=== PATIENT | female | born 1945 | race Caucasian/White ===

== ENCOUNTER → 2016-04-19 | Day surgery (SDC) | payer OTHER, MEDICARE ==
[~2016-04-19] VITALS: Ht 154.9 cm; Wt 90.7 kg
[~2016-04-19] MED LIST: ALLOPURINOL100 M1 PO; ALLOPURINOL100 MG PO; AMBIEN 10MG10 MG PO; ASPIR 8181 MG PO; BENICAR20 MG PO; BENICAR40 M1 PO; CLOPIDOGREL75 M1 PO; COLCHICINE0.6 MG PO; COREG 3.125M3.125 MG PO; COREG CR10 MG PO; COREG3.125 MG PO; CYANOCOBAL1000 MCG/1 IM; DULOXETINE HYDR60 MG PO; HEPARIN 2525000 UNI1 IV; LEXAPRO10 M1 PO; NAC600 MG PO; PRAVACHOL20 M2 PO; TOPAMAX 100MG100 MG PO; TOPAMAX50 M1 PO; WELCHOL 625 MG625 MG PO; ZETIA10 M1 PO; ZETIA10 MG PO
--- NOTE | 2016-04-19 18:08 | Operative Report ---
Operative/Inv Procedure Report Surgery Date: 04/19/16 Name of Procedure: Open mesh repair of incarcerated incisional ventral hernia Pre-Operative Diagnosis: Same Post-Operative Diagnosis: Same Estimated Blood Loss: scant Surgeon/Yard Jacker: ARLETTE ESCOBEDO,VICKIE SOFIA Anesthesia: general endotracheal tube Operative/Procedure Note Note: Patient was placed on the OR table in the supine position. After successful induction of general anesthesia, another timeout was done, antibiotics given, the abdomen was clipped prepped and draped in the usual sterile fashion. An incision was planned overlying the hernia, to excise the existing scar there, this spot was infiltrated with local anesthetic and then an elongated elliptical incision was made with a 15 blade. This was deepened with cautery and the herniated fat and overlying sac is some small but mostly large bowel were dissected circumferentially off the fascia, defining the true edges of the defect, which was about 6 cm diameter, but it could be brought together in the midline with not too much tension. We then inserted the Ventralex coated 6.5 centimeter mesh underneath the defect using the tails to center it and then closed the defect with multiple 2-0 Maxon and also Prolene sutures, incorporating the mesh with the fascial closure. The subcutaneous space from the herniated sac was large so we decided to leave a drain in it but we isolated this space from the hernia repair by imbricating some remnants of sac and scar over the suture line with 3-0 Vicryl suture. Then the subcutaneous layer and King's fascia were reapproximated to cover. The incision was irrigated and then the skin was reapproximated with garrison, followed by an island dressing and a separate gauze for the drain exit site which was secured to the skin with remnant of the 2-0 Prolene. EBL minimal lap and sponge counts correct wound expectancy clean IV fluids crystalloid complications none patient tolerated the procedure well was awakened extubated returned to the recovery room in satisfactory condition.
== END ==
LOC: STS 04:00
DX: K43.0 Incisional hernia with obstruction, without gangrene (principal); I25.10 Atherosclerotic heart disease of native coronary artery without angina pectoris; I10 Essential (primary) hypertension; E78.5 Hyperlipidemia, unspecified; K86.9 Disease of pancreas, unspecified
CPT/HCPCS: J0131; J2250

== ENCOUNTER 2016-10-25 08:14 | Emergency (ER) | payer OTHER, MEDICARE ==
[~2016-10-25] VITALS: Ht 152.4 cm; Wt 90.7 kg
[~2016-10-25 08:14] MED LIST changes: -AMBIEN 10MG10 MG PO; +AMBIEN10 M1 PO; -ASPIR 8181 MG PO; +ASPIRIN EC81 M1 PO; +TOPAMAX25 M3 PO; -TOPAMAX50 M1 PO
--- NOTE | 2016-10-25 08:42 | ED GENERAL ADULT ---
History of Present Illness General Chief Complaint: General Adult Stated Complaint: BIBA, LEFT UPPER AND LOWER EXTREMITY PAIN, NKI Source: patient, old records Exam Limitations: no limitations Vital Signs & Intake/Output Vital Signs & Intake/Output Vital Signs Date Time Temp Pulse Resp B/P B/P Pulse O2 O2 Flow FiO2 Mean Ox Delivery Rate 10/25 1058 98.6 87 21 148/62 96 Room Air 10/25 0815 98.2 93 20 151/65 97 Room Air Allergies Coded Allergies: Penicillins (THROAT CLOSES 04/16/16) azithromycin (THROAT CLOSES, LARYNGEAL EDEMA 04/16/16) cephalexin (From KEFLEX) (HIVES 04/16/16) levofloxacin (LARYNGEAL EDEMA, THROAT CLOSES 04/16/16) moxifloxacin (LARYNGEAL EDEMA 04/16/16) naproxen (THROAT CLOSES 04/16/16) Reconcile Medications Allopurinol 100 MG TABLET 1 TAB PO DAILY GOUT (Reported) Aspirin (Ecotrin*) 81 MG TABLET.DR 1 TAB PO DAILY HEART HEALTH (Reported) Carvedilol (Coreg) 3.125 MG TABLET 1 TAB PO BID BP (Reported) Clopidogrel Bisulfate (Clopidogrel) 75 MG TABLET 1 TAB PO DAILY BLOOD THINNER (Reported) Escitalopram Oxalate (Lexapro) 10 MG TABLET 1 TAB PO DAILY DEPRESSION ( Reported) Ezetimibe (Zetia) 10 MG TABLET 1 TAB PO DAILY CHOLESTEROL (Reported) Olmesartan Medoxomil (Benicar) 40 MG TABLET 1 TAB PO DAILY BP (Reported) Pravastatin Sodium (Pravachol) 20 MG TABLET 1 TAB PO QPM CHOLESTEROL ( Reported) Prednisone 10 MG TABLET 1 TAB PO DAILY JOINT PAIN 4 TASB PO X 3 DAYS, 3 TABS PO X 3 DAYS, 2 TABS PO X 3 DAYS, 1 TAB PO X 3 DAYS, 0.5 TAB PO X 3 DAYS Topiramate (Topamax) 25 MG TABLET 1 TAB PO BID HEADACHE (Reported) Zolpidem Tartrate (Ambien) 10 MG TABLET 1 TAB PO QPM SLEEP (Reported) Triage Note: PT BIBA FROM HOME FOR PAINFUL LEFT ARM AND LEFT LEG X 1 MONTH. STATES SHE HAD PAIN IN THE BACK OF HER LEFT LEG AND SAW HER ORTHO WHO DX MUSCLE STRAIN. STATES SHE GOT BACK FROM [place] ON THE 8TH AND PAIN HAS BEEN GETTING WORSE WOKE UP YESTERDAY AND WAS UNABLE TO WALK AND UNABLE TO MOVE LEFT ARM.. PT HAS HX OF BILATERAL KNEE REPLACEMENT Triage Nurses Notes Reviewed? yes Onset: Gradual Duration: worse persistent since (230 am yesterday) Timing: recent history Injury Environment: home Severity: severe Severity Numbers: 10 Modifying Factors: Improves With: immobilization. Worsens With: movement. HPI: Patient is a 70-year-old female with history of chronic pain, multiple surgeries including bilateral knee replacement, ventral hernia repair, PA in the past presenting to the emergency department with chief complaint of left upper and lower she any pain worsening since 2:30 AM this morning. Patient denies any known injury. Patient got up to go to the bathroom and had difficulty ambulating. Patient reports that she was able to get up and used a cane. Pain is currently 10 out of 10 in upper and lower extremity. History of chronic pain "everywhere" but never this bad. She was scheduled to call a drawbench operator this morning but symptoms worsened so she came in for evaluation. She did have some low back pain a few weeks ago, saw her orthopedic prior to leaving for a vacation to [facility]. She was doing water aerobics she was there and symptoms seemed to improve. Came back home about 10 days ago and has been doing okay but pain gradually worsening. Denies any fevers or chills. No recent illness. Denies any numbness or tingling. Denies any weakness. Denies abdominal pain nausea or vomiting. No chest pain palpitations or shortness of breath. The slightest movement causes worsening symptoms. Denies any urinary frequency or urgency or dysuria. Denies any trouble swallowing. Denies any trouble speaking. No confusion. (HINA SOFIA,DAISY) Past History Travel History Traveled to [place] past 21 day No Medical History Any Pertinent Medical History? see below for history Neurological: migraine Cardiovascular: CAD (s/p PCI x2), CHF (stage I diastolic dysfunction), hypertension, hyperlipidemia, NSTEMI Gastrointestinal: peptic ulcer disease Musculoskeletal: gout Endocrine: PANCREATECTOMY Blood Disorders: anemia, SPLENECTOMOY Cancer(s): pancreatic cancer (status post pancreatectomy) History of MRSA: No History of VRE: No History of CDIFF: No Surgical History Surgical History: hernia repair-incisional, lumpectomy (benign), tubal ligation, splenectomy pancreatectomy multiple foot, shoulder and knee surgeries Psychosocial History Who do you live with Patient/Self Services at Home None What is your primary language Latvian Tobacco Use: Quit >30 days ago ETOH Use: occasional use Illicit Drug Use: denies illicit drug use Family History Family History, If Any: SISTER (UTERINE CANCER). MOTHER (bladder cancer). Hx Contributory? No (DAISY HERNANDEZ) Review of Systems Review of Systems Constitutional: Reports: no symptoms. Comments Review of systems: See HPI, All other systems negative. Constitutional, no chills fever or weight loss HEENT: No visual changes no sore throat no congestion Cardiovascular: No chest pain ,palpitation , orthopnea or ankle swelling Skin, no jaundice no rashes Respiratory: No dyspnea cough sputum or hemoptysis GI: No nausea no vomiting : No dysuria No hematuria Muscle skeletal: Positive neck and back pain Neurologic: No numbness no confusion, no headaches Psych: No stress anxiety or depression,. Heme/endocrine: No bruising no bleeding no polyuria or polydipsia Immunology: No splenectomy or history of AIDS (DAISY HERNANDEZ) Physical Exam Physical Exam General Appearance: well developed/nourished, alert, mild distress, obese, tearful Comments: Obese person in no acute distress HEENT: Pupils equally round and reactive to light and accommodation. Nose is atraumatic. External auditory canal and Tympanic membranes clear. Pharynx normal. No swelling or edema. Neck: Supple, no lymphadenopathy, normal range of motion without pain or tenderness, no C-spine tenderness. Back: Cardiovascular: Regular rate and rhythms no murmurs rubs or gallops, normal JVP Respiratory: Chest nontender. No respiratory distress.breath sounds clear to auscultation bilaterally Abdomen: Soft, obese, nontender nondistended, no appreciable organomegaly. Normal bowel sounds. No ascites, no rebound or guarding. Extremity: No edema, pedal pulses are 2+ bilaterally. Positive left calf tenderness to palpation. No popliteal pain to palpation bilaterally. Old surgical incisions approximately 20 cm in length, vertical noted over the patellas bilaterally. No surrounding erythema or edema. Nontender to palpation over bilateral patellas. No ankle tenderness to palpation bilaterally. Tenderness to palpation over the left bicep, limited range of motion of left upper extremity secondary to pain in the left bicep. Pain in approximately 45 of left upper extremity flexion at the elbow. Pain to palpation over the anterior and posterior aspect of the left shoulder. Marker Maker strength is equal and symmetric bilaterally. Muscular strength in upper and lower extremities on the right side is 5 out of 5. Left upper and left lower extremity muscular strength is 3 out of 5. Difficulty with straight leg raise on the left lower extremity. Neuro: Alert oriented x3, motor sensory normal, patellar reflexes are 2+ bilaterally. Skin: No appreciable rash on exposed skin, skin is warm and dry. Psych: Mood and affect is normal, memory and judgment is normal. Core Measures ACS in differential dx? No CVA/TIA Diagnosis: No Severe Sepsis Present: No Septic Shock Present: No (DAISY HERNANDEZ) Progress Differential Diagnoses I considered the following diagnoses in my evaluation of the patient: CVA, TIA, polyarthralgia rheumatica, exacerbation of chronic pain, radicular pain Plan of Care: Orders Procedure Date/time Status URINALYSIS 10/25 1037 Complete PARTIAL THROMBOPLASTIN TIME 10/25 0851 Complete PROTHROMBIN TIME 10/25 0851 Complete TROPONIN LEVEL 10/25 0841 Complete LYME TITRE 10/25 0841 Complete WESTERGREN SED RATE 10/25 0841 Complete COMPREHENSIVE METABOLIC PANEL 10/25 0841 Complete CBC WITHOUT DIFFERENTIAL 10/25 0841 Complete EKG 10/25 0841 Active Laboratory Tests 10/25/16 1040: Urine Color STRAW, Urine Clarity CLEAR, Urine pH 6.0, Ur Specific Dougherty 1.010, Urine Protein NEG, Urine Ketones NEG, Urine Nitrite NEG, Urine Bilirubin NEG, Urine Urobilinogen 0.2, Ur Leukocyte Esterase NEG, Ur Microscopic EXAM NOT REQUIRED, Urine Hemoglobin NEG, Urine Glucose NEG 10/25/16 0930: Anion Gap 13, Estimated GFR 55 L, BUN/Creatinine Ratio 18.0, Glucose 126 H, Calcium 9.2, Total Bilirubin 0.6, AST 21, ALT 31, Alkaline Phosphatase 91, Troponin I < 0.01, Total Protein 7.0, Albumin 4.0, Globulin 3.0, Albumin/ Globulin Ratio 1.3, PT 11.7, INR 1.12, APTT 31, CBC w Diff MAN DIFF ORDERED, RBC 3.90 L, MCV 92.2, MCH 29.5, RDW 15.7 H, MPV 11.0 H, Gran % 76.0 H, Lymphocytes % 15.8 L, Monocytes % 6.1, Eosinophils % 1.2, Basophils % 0.9, Absolute Granulocytes 12.0 H, Absolute Lymphocytes 2.5, Absolute Monocytes 1.0 H, Absolute Eosinophils 0.2, Absolute Basophils 0.1, Platelet Estimate VERIFIED BY SMEAR, Anisocytosis 1+, PUBS MCHC 32.0 L, ESR Westergren 56 H, Lyme Disease Antibody 0.38 Diagnostic Imaging: Viewed by Me: Radiology Read, CT Scan. Discussed w/RAD: Radiology Read, CT Scan. Radiology Impression: PATIENT: ALTHEA WALSH PRESENT AGE: 70 PATIENT ACCOUNT NO: [id number] : 45 LOCATION: ER ORDERING PHYSICIAN: DAISY SOFIA SERVICE DATE: 10/25/16 EXAM TYPE: US - US-UNILATERAL VENOUS DOPPLER EXAMINATION: LEFT LOWER EXTREMITY DEEP VENOUS ULTRASOUND CLINICAL INFORMATION: Left leg pain. History of recent 5 hour flight. COMPARISON: None. TECHNIQUE: Duplex Doppler imaging with compression maneuvers were performed of the left lower extremity deep venous system. FINDINGS: The visualized common femoral, femoral and popliteal veins demonstrate normal compressibility and color flow without evidence of venous thrombosis. Visualized portions of the calf veins demonstrate normal color fill-in suggesting patency. There is no evidence of a Dang's cyst. IMPRESSION: No evidence of deep venous thrombosis involving the left lower extremity. DICTATED BY: KOFI LEVIN MD DATE/TIME DICTATED:10/25/16924, PATIENT: ALTHEA WALSH PRESENT AGE: 70 PATIENT ACCOUNT NO: [id number] : 45 LOCATION: [facility] ORDERING PHYSICIAN: DAISY SOFIA SERVICE DATE: 10/25/16 EXAM TYPE: CAT - CT HEAD WO IV CONTRAST EXAMINATION: CT HEAD WITHOUT CONTRAST CLINICAL INFORMATION: Left upper and lower extremity weakness and pain. Evaluate for cerebrovascular accident. COMPARISON: CT head 08/19/2009. TECHNIQUE: Contiguous axial imaging was performed from the skull base to vertex without intravenous administration of contrast. DLP: 620.92 mGy-cm FINDINGS: There is no acute intracranial hemorrhage or abnormal extra-axial collection. No intracranial mass effect or midline shift. Lateral and third ventricles are normal. No hydrocephalus. There are a few scattered nonspecific foci of hypoattenuation within the periventricular white matter. Gallegos-white matter differentiation is otherwise preserved and there is no evidence of acute territorial infarct. The calvarium and skull base are intact. Mastoid air cells and middle ear cavities are well-aerated. Chronic posttreatment changes related to bilateral maxillary sinus fenestrations and partial ethmoidectomies are noted. Grossly no evidence of active paranasal sinus disease. IMPRESSION: There are a few chronic small vessel ischemic changes within the periventricular matter. No evidence of acute territorial infarct or hemorrhage. DICTATED BY: NÉSTOR GARCIAS MD DATE/TIME DICTATED:10/25/16934 INDUSTRIAL HEALTH ENGINEER: PHONG DATE/TIME TRANSCRIBED:10/25/16934 CONFIDENTIAL, DO NOT COPY WITHOUT APPROPRIATE AUTHORIZATION. <Electronically signed in Other Vendor System> SIGNED BY: NÉSTOR GARCIAS MD 10/25/16946, PATIENT: ALTHEA WALSH PRESENT AGE: 70 PATIENT ACCOUNT NO: [id number] : 45 LOCATION: [facility] ORDERING PHYSICIAN: DAISY SOFIA SERVICE DATE: 10/25/16 EXAM TYPE: CAT - CT CERV SPINE WO IV CONTRAST EXAMINATION: CT CERVICAL SPINE WITHOUT CONTRAST CLINICAL INFORMATION: Pain left upper extremity. Assess for compression fracture/stenosis. COMPARISON: None TECHNIQUE: Axial CT cervical spine is performed without contrast. Additional 2-D coronal and sagittal reformatted images are generated on the CT workstation. DLP : 344 mGy-cm FINDINGS: There is no vertebral compression fracture, fracture line , spondylolisthesis, or prevertebral soft tissue swelling. The craniocervical junction appears normal. The odontoid appears intact. There is normal cervical lordosis with mild leftward tilting cervical spine on coronal images. There are degenerative disc changes greatest at C5-C6 and C6-C7 with disc narrowing and vertebral spurring. There is facet degeneration left C3-C4 with narrowing of the left C3-C4 neural foramen. There is no central bony stenosis. Paraspinal soft tissues are unremarkable. No paraspinal soft tissue swelling or mass demonstrated on noncontrast exam. Lung apices show no pneumothorax. IMPRESSION: 1. No acute bony abnormality or prevertebral soft tissue swelling. No vertebral compression. 2. Degenerative disc changes greatest at C5-C6 and C6-C7. Scattered facet degeneration. Narrowing left C3-C4 neural foramen. DICTATED BY: EDDY NEWTON MD DATE/TIME DICTATED:10/25/161242 INDUSTRIAL HEALTH ENGINEER:PHONG DATE/TIME TRANSCRIBED:10/25/161242 CONFIDENTIAL, DO NOT COPY WITHOUT APPROPRIATE AUTHORIZATION. <Electronically signed in Other Vendor System> SIGNED BY: EDDY NEWTON MD 10/25/16 1301 CXR Impression: PATIENT: ALTHEA WALSH PRESENT AGE: 70 PATIENT ACCOUNT NO: [id number] : 45 LOCATION: [facility] ORDERING PHYSICIAN: DAISY SOFIA SERVICE DATE: 10/25/16-1037 EXAM TYPE: RAD - XRY-PORTABLE CHEST XRAY EXAMINATION: XR PORTABLE CHEST CLINICAL INFORMATION: Left upper extremity pain. COMPARISON: CT chest 03/14/2016, chest x-ray of 04/22. TECHNIQUE: Portable frontal view of the chest was obtained. FINDINGS: The cardiomediastinal silhouette is stable with the upper limits of normal cardiac size versus mild cardiomegaly. The lungs are normally and symmetrically expanded. No focal consolidation, changes of congestion or pleural effusions. No pneumothorax. Mild degenerative changes are noted at the shoulders. IMPRESSION: No radiographic evidence of pneumonia. No acute pulmonary process. Stable cardiomediastinal silhouette with the upper limits of normal cardiac size versus mild cardiomegaly. DICTATED BY: HUEY BUSTMAANTE MD DATE/TIME DICTATED:10/25/161106 INDUSTRIAL HEALTH ENGINEER:PHONG DATE/TIME TRANSCRIBED:10/25/161106 CONFIDENTIAL, DO NOT COPY WITHOUT APPROPRIATE AUTHORIZATION. <Electronically signed in Other Vendor System> Initial ED EKG: SINUS [address] AV BLOCK, LEFT VENTRICULAR HYPERTROPHY Comments: Patient able to ambulate well without weakness or pain after initial pain medication. Patient was updated on all imaging study results and lab work results. No acute findings, patient reporting that pain has been increasing since her initial dose. Requesting additional pain medication. Also cranked then reports that previous episodes like this in the past have improved with steroids. Patient given IV Solu-Medrol. Patient able to ambulate without difficulty after steroids and pain medication. Discussed with Dr. Park, patient will be discharged home. She'll follow up with dermatology and PCP. She was educated on signs and symptoms to return. Likely exacerbation of chronic pain is patient reports that this has been, ongoing for "a while". She does have elevation in her sedimentation rate. With blood cell count is likely secondary to recent prednisone use. Patient will be started on prednisone taper again. Also given breakthrough pain medication. Patient ambulatory throughout the emergency department, felt "LIKE going for a walk". No indication for admission at this time. Also considering polyarthralgia rheumatica. (DAISY HERNANDEZ) Departure Departure Time of Disposition: 1423 Disposition: HOME OR SELF CARE Condition: Stable Clinical Impression Primary Impression: Chronic pain Qualifiers: Chronic pain type: other chronic pain Qualified Code: G89.29 - Other chronic pain Secondary Impressions: Arthritis Referrals: MALENA ESCOBEDO,HUE MAURICIO MD,SOHAM Ramírez (PCP/Family) Additional Instructions: Follow-up with rheumatology call to make an appointment. Take prednisone taper as prescribed. For severe pain take Departure Forms: Customer Survey General Discharge Information Prescriptions: Current Visit Scripts Prednisone 1 TAB PO DAILY #32 TAB 4 TASB PO X 3 DAYS, 3 TABS PO X 3 DAYS, 2 TABS PO X 3 DAYS, 1 TAB PO X 3 DAYS, 0.5 TAB PO X 3 DAYS (DAISY HERNANDEZ) PA/FLUE TILE PRESS OPERATOR Co-Sign Statement Statement: ED Attending supervision documentation- [x] I saw and evaluated the patient. I have also reviewed all the pertinent lab results and diagnostic results. I agree with the findings and the plan of care as documented in the PA's/FLUE TILE PRESS OPERATOR's documentation. [] I have reviewed the ED Record and agree with the PA's/FLUE TILE PRESS OPERATOR's documentation. [] Additions or exceptions (if any) to the PAs/FLUE TILE PRESS OPERATOR's note and plan are summarized below: [] ([place] DO) Critical Care Note Critical Care Note Critical Care Time: non-applicable (DAISY HERNANDEZ) [] Additions or exceptions (if any) to the PAs/FLUE TILE PRESS OPERATOR's note and plan are summarized below: [] ([place]AR PARK DO) Critical Care Note Critical Care Note Critical Care Time: non-applicable (DAISY HERNANDEZ)
--- NOTE | 2016-10-25 09:30 | ULTRASOUND REPORT ---
EXAMINATION: LEFT LOWER EXTREMITY DEEP VENOUS ULTRASOUND CLINICAL INFORMATION: Left leg pain. History of recent 5 hour flight. COMPARISON: None. TECHNIQUE: Duplex Doppler imaging with compression maneuvers were performed of the left lower extremity deep venous system. FINDINGS: The visualized common femoral, femoral and popliteal veins demonstrate normal compressibility and color flow without evidence of venous thrombosis. Visualized portions of the calf veins demonstrate normal color fill-in suggesting patency. There is no evidence of a Dang's cyst. IMPRESSION: No evidence of deep venous thrombosis involving the left lower extremity.
[2016-10-25 09:46] LABS: ABSOLUTE BASOPHIL COUNT 0.1 /CUMM (0.0-0.2); ABSOLUTE EOSINOPHIL COUNT 0.2 /CUMM (0.0-0.7); ABSOLUTE LYMPH COUNT 2.5 /CUMM (1.2-3.4); BASOPHIL % 0.9 % (0.0-2.0); EOSINOPHIL % 1.2 % (0-5); MEAN CORPUSCULAR HGB 29.5 PG (27.0-31.0); MEAN CORPUSCULAR VOLUME 92.2 FL (81.0-99.0); PLATELET COUNT 266 /CUMM (130-400); RBC DISTRIBUTION WIDTH 15.7 % (11.5-14.5); WHITE BLOOD CELL COUNT 15.7 /CUMM (4.8-10.8)
--- NOTE | 2016-10-25 09:47 | CT SCAN REPORT ---
EXAMINATION: CT HEAD WITHOUT CONTRAST CLINICAL INFORMATION: Left upper and lower extremity weakness and pain. Evaluate for cerebrovascular accident. COMPARISON: CT head 08/19/2009. TECHNIQUE: Contiguous axial imaging was performed from the skull base to vertex without intravenous administration of contrast. DLP: 620.92 mGy-cm FINDINGS: There is no acute intracranial hemorrhage or abnormal extra-axial collection. No intracranial mass effect or midline shift. Lateral and third ventricles are normal. No hydrocephalus. There are a few scattered nonspecific foci of hypoattenuation within the periventricular white matter. Gallegos-white matter differentiation is otherwise preserved and there is no evidence of acute territorial infarct. The calvarium and skull base are intact. Mastoid air cells and middle ear cavities are well-aerated. Chronic posttreatment changes related to bilateral maxillary sinus fenestrations and partial ethmoidectomies are noted. Grossly no evidence of active paranasal sinus disease. IMPRESSION: There are a few chronic small vessel ischemic changes within the periventricular matter. No evidence of acute territorial infarct or hemorrhage.
[2016-10-25 10:02] LABS: PT 11.7 SEC (9.4-12.5); PTT 31 SEC (25-37)
[2016-10-25 10:58] VITALS: BP 148/62
--- NOTE | 2016-10-25 11:14 | RADIOLOGY REPORT ---
EXAMINATION: XR PORTABLE CHEST CLINICAL INFORMATION: Left upper extremity pain. COMPARISON: CT chest 03/14/2016, chest x-ray of 04/22/2015. TECHNIQUE: Portable frontal view of the chest was obtained. FINDINGS: The cardiomediastinal silhouette is stable with the upper limits of normal cardiac size versus mild cardiomegaly. The lungs are normally and symmetrically expanded. No focal consolidation, changes of congestion or pleural effusions. No pneumothorax. Mild degenerative changes are noted at the shoulders. IMPRESSION: No radiographic evidence of pneumonia. No acute pulmonary process. Stable cardiomediastinal silhouette with the upper limits of normal cardiac size versus mild cardiomegaly.
--- NOTE | 2016-10-25 13:01 | CT SCAN REPORT ---
EXAMINATION: CT CERVICAL SPINE WITHOUT CONTRAST CLINICAL INFORMATION: Pain left upper extremity. Assess for compression fracture/stenosis. COMPARISON: None TECHNIQUE: Axial CT cervical spine is performed without contrast. Additional 2-D coronal and sagittal reformatted images are generated on the CT workstation. DLP: 344 mGy-cm FINDINGS: There is no vertebral compression fracture, fracture line, spondylolisthesis, or prevertebral soft tissue swelling. The craniocervical junction appears normal. The odontoid appears intact. There is normal cervical lordosis with mild leftward tilting cervical spine on coronal images. There are degenerative disc changes greatest at C5-C6 and C6-C7 with disc narrowing and vertebral spurring. There is facet degeneration left C3-C4 with narrowing of the left C3-C4 neural foramen. There is no central bony stenosis. Paraspinal soft tissues are unremarkable. No paraspinal soft tissue swelling or mass demonstrated on noncontrast exam. Lung apices show no pneumothorax. IMPRESSION: 1. No acute bony abnormality or prevertebral soft tissue swelling. No vertebral compression. 2. Degenerative disc changes greatest at C5-C6 and C6-C7. Scattered facet degeneration. Narrowing left C3-C4 neural foramen.
--- NOTE | 2016-10-25 13:23 | CT SCAN REPORT ---
EXAMINATION: CT THORACIC SPINE WITHOUT CONTRAST CLINICAL INFORMATION: Pain left arm and leg. Assess for compression fracture/stenosis. COMPARISON: CT cervical spine without contrast 10/25/2016. TECHNIQUE: Axial CT cervical thoracic spine is performed without contrast. Additional 2-D coronal and sagittal reformatted images are generated on the CT workstation. DLP: 1514 mGy-cm FINDINGS: There are 12 rib-bearing thoracic vertebrae of normal height and with normal thoracic kyphosis. There is no thoracic vertebral compression, spondylolisthesis, or prevertebral soft tissue swelling. No paraspinal soft tissue swelling or visible mass on noncontrast images. There are multilevel degenerative disc changes with mild disc narrowing and vertebral spurring. There is posterior central disc-osteophyte complex with bridging posterocentral osteophytes resulting in central stenosis at T6-T7. There is also posterior central disc osteophyte complex with bridging osteophyte T3-T4 with probable mild posterior central stenosis. Bridging anterior osteophytes are present at T8-T9, T9-T10, and T11-T12. There is bulky right lateral bridging osteophytes at mid thoracic region. IMPRESSION: 1. Multilevel degenerative disc changes with bulky posterior central disc osteophyte complex resulting in central stenosis at T6-T7. Small posterocentral disc osteophyte complex with probable mild stenosis T3-T4. 2. No thoracic vertebral compression or spondylolisthesis. No destructive process. No paraspinal soft tissue swelling.
--- NOTE | 2016-10-25 13:37 | CT SCAN REPORT ---
EXAMINATION: CT LUMBAR SPINE WITHOUT CONTRAST CLINICAL INFORMATION: Pain left arm and leg. Assess for compression/stenosis. COMPARISON: CT cervical spine and CT thoracic spine 10/25/2016. CT abdomen and pelvis 01/19/2016. TECHNIQUE: Axial CT lumbar spine is performed without contrast. Additional 2-D coronal and sagittal reformatted images are generated on the CT workstation. DLP: 1095 mGy-cm FINDINGS: There is mild dextrocurvature mid lumbar spine on coronal images with normal lumbar lordosis. The vertebral bodies are normal in height and there is no lumbar vertebral compression, fracture, or destructive process. 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 There are multilevel degenerative disc changes with disc narrowing and vacuum disc and vertebral spurring L1-L4. There is also disc narrowing at L4-L5 without vacuum disc. Multilevel mild facet degeneration is also present. There is a borderline grade 0-1 spondylolisthesis at L4-L5 similar to the CT 2016. There is no overt central or foraminal stenosis. No paraspinal soft tissue swelling or mass. IMPRESSION: 1. Mild dextrocurvature mid lumbar spine. Normal lumbar lordosis. No vertebral compression or destructive process. 2. Multilevel degenerative disc and degenerative facet changes. Borderline grade 0-1 spondylolisthesis L4-L5. 3. No bony central or foraminal spinal stenosis.
[2016-10-25] MEDS ORDERED: PREDNISONE10 M2 PO (14:29)
== END 2016-10-25 14:51 ==
LOC: ERH 08:14
PROVIDERS: Physician Assistant
DX: G89.29 Other chronic pain (principal); M19.90 Unspecified osteoarthritis, unspecified site; M79.605 Pain in left leg; I50.9 Heart failure, unspecified; Z87.891 Personal history of nicotine dependence
CPT/HCPCS: 86618; 81003; 93005; 93010; 96374; 96375; 96376; J2930